=== PATIENT | female | born 1940 | race Caucasian/White ===

== ENCOUNTER → 2016-08-19 | Outpatient (CLI) | payer MEDICARE, OTHER | END | disposition home or self-care (01) | LOC: GMAB 02:19 | PROVIDERS: ATTEND Family Medicine | DX: R14.0 Abdominal distension (gaseous) (principal); M79.7 Fibromyalgia ==

== ENCOUNTER → 2016-11-09 | Outpatient (CLI) | payer MEDICARE, OTHER | LOC: GMAB 17:20 | PROVIDERS: ATTEND Family Medicine | DX: D61.818 Other pancytopenia (principal); D72.819 Decreased white blood cell count, unspecified ==

== ENCOUNTER → 2017-02-14 | Outpatient (CLI) | payer MEDICARE, OTHER | END | disposition home or self-care (01) | LOC: MAMMO 11:19 | PROVIDERS: ATTEND Family Medicine | DX: Z12.31 Encounter for screening mammogram for malignant neoplasm of breast (principal) ==

== ENCOUNTER → 2017-05-10 | Outpatient (CLI) | payer MEDICARE, OTHER | END | disposition home or self-care (01) | LOC: GMAB 11:59 | PROVIDERS: ATTEND Family Medicine | DX: D72.819 Decreased white blood cell count, unspecified (principal); D64.9 Anemia, unspecified; E53.8 Deficiency of other specified B group vitamins ==

== ENCOUNTER → 2017-06-06 | Outpatient (CLI) | payer MEDICARE, OTHER | END | disposition home or self-care (01) | LOC: GMAB 17:32 | PROVIDERS: ATTEND Family Medicine | DX: N39.498 Other specified urinary incontinence (principal) ==

== ENCOUNTER → 2017-06-13 | Outpatient (CLI) | payer MEDICARE, OTHER | END | disposition home or self-care (01) | LOC: GMAB 10:45 | PROVIDERS: ATTEND Family Medicine | DX: R94.5 Abnormal results of liver function studies (principal); I10 Essential (primary) hypertension ==

== ENCOUNTER → 2017-09-01 | Outpatient (CLI) | payer OTHER | LOC: GMAB 14:16 | PROVIDERS: ATTEND Family Medicine | DX: E53.8 Deficiency of other specified B group vitamins (principal); D64.9 Anemia, unspecified; D72.819 Decreased white blood cell count, unspecified ==

== ENCOUNTER 2018-01-19 06:39 | Emergency (ER) | payer OTHER ==
[2018-01-19 06:55] VITALS: TEMP 98.2
--- NOTE | 2018-01-19 07:14 | ED.PDOC ---
History of Present Illness - General Chief Complaint: Problem Stated Complaint: unable to completely empty when she urinates,sims Time Seen by Provider: 01/19/18 07:11 Source: patient Exam Limitations: no limitations - History of Present Illness Initial Comments: unable to completely empty her bladder, also voices that she sims and dribbles when she urinates, onset last night around midnight. Timing/Duration: other - last night Quality: moderate Onset Location: suprapubic Radiation: none Activites at Onset: none Improving Factors: nothing Allergies/Adverse Reactions: Allergies NO KNOWN ALLERGY Allergy (Verified 01/19/18 06:55) Home Medications: Ambulatory Orders Aspirin [Aspirin Childrens] 81 mg PO DAILY 06/29/15 Cholecalciferol [Vitamin D3] 1,000 unit PO DAILY 06/29/15 Cyclobenzaprine HCl [Flexeril] 10 mg PO PRN PRN 06/29/15 Duloxetine HCl 60 mg PO DAILY 06/29/15 HYDROcodone 7.5MG/APAP 325MG [[place] 7.5/325] 1 ea PO PRN 06/29/15 Hydroxychloroquine [Plaquenil] 200 mg PO DAILY 06/29/15 Meloxicam 15 mg PO DAILY 06/29/15 Metoprolol Tartrate 25 mg PO DAILY 06/29/15 Pantoprazole Sodium 40 mg PO DAILY 06/29/15 Simvastatin 40 mg PO BEDTIME 06/29/15 Alendronate Sodium [Fosamax] 70 mg PO WKLY 01/19/18 Cyanocobalamin [Vitamin B-12] 500 mcg PO DAILY 01/19/18 Phenazopyridine HCl [Pyridium] 200 mg PO Q8HRS #6 tab 01/19/18 Tofacitinib Citrate [Xeljanz] 5 mg PO BID 01/19/18 Triamterene & Hydrochlorothiaz [Triamterene/Hydrochloroth 37.5-25 mg] 1 cap PO DAILY 01/19/18 levoFLOXacin [Levaquin] 500 mg PO DAILY #10 tab 01/19/18 Review of Systems - Review of Systems Constitutional: States: no symptoms reported EENTM: States: no symptoms reported Respiratory: States: no symptoms reported Cardiology: States: no symptoms reported Gastrointestinal/Abdominal: States: no symptoms reported Genitourinary: States: dysuria, pain Musculoskeletal: States: no symptoms reported Skin: States: no symptoms reported Neurological: States: no symptoms reported Endocrine: States: no symptoms reported Hematologic/Lymphatic: States: no symptoms reported Past Medical History (General) - Patient Medical History Hx Seizures: No Hx Stroke: No Hx Dementia: No Hx Asthma: No Hx of COPD: No Hx Cardiac Disorders: No Hx Congestive Heart Failure: No Hx Pacemaker: No Hx Hypertension: Yes Hx Thyroid Disease: No Hx Diabetes: No Hx Gastroesophageal Reflux: Yes Hx Renal Disease: No Hx of HIV: No Hx MRSA: No Surgical History: cholecystectomy - Vaccination History Hx Tetanus, Diphtheria Vaccination: No Hx Influenza Vaccination: Yes - 2014 Hx Pneumococcal Vaccination: Yes - 2015 - Social History Hx Tobacco Use: No Hx Alcohol Use: No Hx Substance Use: No Hx Substance Use Treatment: No Hx Depression: Yes Family Medical History - Family History Mother Living Status: Hx Family Hypertension: Yes Father Living Status: Hx Cardiac Disease: Yes Physical Exam - Physical Exam General Appearance: Alert, Well Developed, Well Groomed, Well Nourished Eyes, Ears, Nose, Throat Exam: PERRL/EOMI, normal ENT inspection Neck: non-tender, full range of motion, supple Cardiovascular/Respiratory: regular rate, rhythm, normal peripheral pulses, no JVD Gastrointestinal/Abdominal: normal bowel sounds, non tender, soft Rectal Exam: deferred Back Exam: normal inspection, no CVA tenderness Extremity: normal range of motion 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 WAITING FOR UA RESULT. - Results/Orders Results/Orders: UA: TNCT WBC'S AND RBC'S. WILL GIVE IM ROCEPHIN AND DC ON ANTIBIOTICS Departure - Departure Clinical Impression: Urinary tract infection Qualifiers: Urinary tract infection type: acute cystitis Hematuria presence: with hematuria Qualified Code(s): N30.01 - Acute cystitis with hematuria Time of Disposition: 08:24 Condition: Good Departure Forms: ED Discharge - Pt. Copy, Patient Portal Self Enrollment Instructions: DI for Urinary Tract Infection (UTI) Referrals: ISIS SCHUSTER MD [Primary Care Provider] - 1-2 Weeks Prescriptions: Phenazopyridine HCl [Pyridium] 200 mg PO Q8HRS #6 tab levoFLOXacin [Levaquin] 500 mg PO DAILY #10 tab Home Medications: Ambulatory Orders Aspirin [Aspirin Childrens] 81 mg PO DAILY 06/29/15 Cholecalciferol [Vitamin D3] 1,000 unit PO DAILY 06/29/15 Cyclobenzaprine HCl [Flexeril] 10 mg PO PRN PRN 06/29/15 Duloxetine HCl 60 mg PO DAILY 06/29/15 HYDROcodone 7.5MG/APAP 325MG [[place] 7.5/325] 1 ea PO PRN 06/29/15 Hydroxychloroquine [Plaquenil] 200 mg PO DAILY 06/29/15 Meloxicam 15 mg PO DAILY 06/29/15 Metoprolol Tartrate 25 mg PO DAILY 06/29/15 Pantoprazole Sodium 40 mg PO DAILY 06/29/15 Simvastatin 40 mg PO BEDTIME 06/29/15 Alendronate Sodium [Fosamax] 70 mg PO WKLY 01/19/18 Cyanocobalamin [Vitamin B-12] 500 mcg PO DAILY 01/19/18 Phenazopyridine HCl [Pyridium] 200 mg PO Q8HRS #6 tab 01/19/18 Tofacitinib Citrate [Xeljanz] 5 mg PO BID 01/19/18 Triamterene & Hydrochlorothiaz [Triamterene/Hydrochloroth 37.5-25 mg] 1 cap PO DAILY 01/19/18 levoFLOXacin [Levaquin] 500 mg PO DAILY #10 tab 01/19/18
[2018-01-19] MEDS ORDERED: PHENAZOPYRIDINE HCL 200 MG TAB PO ONE (07:48)
[2018-01-19] MEDS ORDERED: cefTRIAXone SODIUM 1 GM VIAL IM ONE (08:21)
[2018-01-19] MEDS ORDERED: cefTRIAXone SODIUM 1 GM VIAL ONE (08:32)
[2018-01-19] MEDS ORDERED: LIDOCAINE 1% 2 ML VIAL INJ ONE (08:33)
[2018-01-19 08:47] VITALS: BP 143/79; O2SAT 95
== END 2018-01-19 08:47 | disposition home or self-care (01) ==
LOC: ER 06:39
DX: N30.01 Acute cystitis with hematuria (principal); I10 Essential (primary) hypertension; K21.9 Gastro-esophageal reflux disease without esophagitis; Z79.82 Long term (current) use of aspirin; Z79.899 Other long term (current) drug therapy
CPT/HCPCS: 81001; 87086; J0696

== ENCOUNTER → 2018-01-31 | Outpatient (CLI) | payer OTHER | LOC: GMAE 14:20 | PROVIDERS: ATTEND Family Medicine | DX: E53.8 Deficiency of other specified B group vitamins (principal); D64.9 Anemia, unspecified; D72.819 Decreased white blood cell count, unspecified ==

== ENCOUNTER → 2018-07-31 | Outpatient (CLI) | payer OTHER ==
--- NOTE | 2018-07-31 10:28 | RAD ---
One radiograph pelvis. 2 radiographs left hip. 2 radiographs right hip. Indication: M25.552 Comparison: None. Impression: Pelvic ring intact. No displaced fracture of the pelvis or hips identified in this osteopenic patient. Evaluation for fracture is limited given the degree of osteopenia. If high clinical concern for acute fracture, correlation with MRI recommended given its greater sensitivity in the osteopenic patient. If the patient cannot tolerate MRI imaging or more urgent imaging is required, CT could be performed, however it is less sensitive in the osteopenic patient when compared to MRI. Mild bilateral hip osteoarthritis with joint space narrowing and tiny osteophytes. Mild ossification of the left hip labrum and right hip labrum noted. Enthesophyte formation right gluteal tendon insertions. Lower lumbar disc disease. Electronically signed by: Adama Busby MD 07/31/2018 10:26 AM [facility]
--- NOTE | 2018-07-31 10:28 | RAD ---
One radiograph pelvis. 2 radiographs left hip. 2 radiographs right hip. Indication: M25.552 Comparison: None. Impression: Pelvic ring intact. No displaced fracture of the pelvis or hips identified in this osteopenic patient. Evaluation for fracture is limited given the degree of osteopenia. If high clinical concern for acute fracture, correlation with MRI recommended given its greater sensitivity in the osteopenic patient. If the patient cannot tolerate MRI imaging or more urgent imaging is required, CT could be performed, however it is less sensitive in the osteopenic patient when compared to MRI. Mild bilateral hip osteoarthritis with joint space narrowing and tiny osteophytes. Mild ossification of the left hip labrum and right hip labrum noted. Enthesophyte formation right gluteal tendon insertions. Lower lumbar disc disease. Electronically signed by: Adama Busby MD 07/31/2018 10:26 AM [facility]
== END ==
LOC: RAD 09:02
PROVIDERS: ATTEND Orthopaedic Surgery
DX: M25.551 Pain in right hip (principal); M25.552 Pain in left hip; M16.0 Bilateral primary osteoarthritis of hip; M51.86 Other intervertebral disc disorders, lumbar region

== ENCOUNTER → 2018-08-09 | Outpatient (CLI) | payer OTHER ==
--- NOTE | 2018-08-10 14:15 | MRI ---
Study: MRI of the Right Hip. MRI of the Left Hip. Indication: STRAIN OF MUSCLE Technique: Multiplanar, multi sequence MRI of the right hip and MRI of the left hip were obtained without intravenous contrast. Comparison: Radiographs July 31, 2018. Findings: Pronounced lower lumbar disc disease. Mild pubic symphysis osteoarthritis. No acute fracture or osteonecrosis. Tendinosis bilateral hamstring tendon origins. Tendinosis bilateral gluteus minimus and medius tendon insertions. No high-grade pelvic tendon tear. Moderate risk edema in the bilateral adductor musculature adjacent to the parasymphyseal pubic bones indicating muscle strains. Moderate bilateral hip osteoarthritis with areas of grade 3 and mild grade 4 chondral loss affecting the bilateral hip joints. Subchondral cystic change noted of the superomedial aspect of the right acetabulum posteriorly. Small to moderate joint line osteophytes noted. Degenerative tearing of the right hip labrum and left hip labrum suspected. Impression: Moderate bilateral hip osteoarthritis with associated bilateral anterior superior labral tearing. No acute fracture or osteonecrosis. Subtle strains of the medial margins of the bilateral adductor musculature. No muscle tear. Additional findings as above. Electronically signed by: Adama Busby MD 08/10/2018 2:13 PM [facility]
== END ==
LOC: MRI 12:54
PROVIDERS: ATTEND Orthopaedic Surgery
DX: S76.091A Other specified injury of muscle, fascia and tendon of right hip, initial encounter (principal); S76.092A Other specified injury of muscle, fascia and tendon of left hip, initial encounter; M16.0 Bilateral primary osteoarthritis of hip

== ENCOUNTER → 2018-08-10 | Outpatient (CLI) | payer OTHER | LOC: GMAE 11:21 | PROVIDERS: ATTEND Family Medicine | DX: M06.9 Rheumatoid arthritis, unspecified (principal); I10 Essential (primary) hypertension ==

== ENCOUNTER 2018-10-15 18:57 | Emergency (ER) | payer OTHER ==
--- NOTE | 2018-10-15 19:21 | ED.PDOC ---
History of Present Illness - General Chief Complaint: Abdominal Pain Stated Complaint: upper abd/back pain Time Seen by Provider: 10/15/18 19:11 Information Source: patient Exam Limitations: no limitations - History of Present Illness Initial Comments: Manuela Yu 78 y/o female came to ER with intermittent dull ache between her shoulder blades radiating to upper abdominal area substernal since Tuesday felt nauseated today and since symptoms not any better decided to come to ER.Denies any heart problems ;has hypertension on medications.Had cardiac stress testing by Dr. Jones -pharmacovigilance scientist 3-4 years ago no abnormalities noted and since then no further follow up done by her. Abdominal Pain Onset Location: other - 3 days ago Pain Radiation: other - substernal Quality: dull Timing/Duration: days - 3 days Improving Factors: nothing Worsening Factors: nothing Associated Symptoms: nausea/vomiting Review of Systems - Review of Systems Constitutional: States: no symptoms reported EENTM: States: no symptoms reported Respiratory: States: no symptoms reported Cardiology: States: see HPI Gastrointestinal/Abdominal: States: no symptoms reported Genitourinary: States: no symptoms reported Musculoskeletal: States: no symptoms reported Skin: States: no symptoms reported Neurological: States: no symptoms reported All other Systems: Reviewed and Negative, No Change from Baseline Past Medical History (General) - Patient Medical History Hx Seizures: No Hx Stroke: No Hx Dementia: No Hx Asthma: No Hx of COPD: No Hx Cardiac Disorders: No Hx Congestive Heart Failure: No Hx Pacemaker: No Hx Hypertension: Yes Hx Thyroid Disease: No Hx Diabetes: No Hx Gastroesophageal Reflux: Yes Hx Renal Disease: No Hx of HIV: No Hx MRSA: No Surgical History: appendectomy, cholecystectomy, tonsillectomy, other - both knees,hysterectomy,bladder tuck,foot - Vaccination History Hx Tetanus, Diphtheria Vaccination: No Hx Influenza Vaccination: Yes Hx Pneumococcal Vaccination: Yes - 2015 - Social History Hx Tobacco Use: No Hx Alcohol Use: No Hx Substance Use: No Hx Substance Use Treatment: No Hx Depression: Yes - Female History Patient is a Female of Child Bearing Age (10 -59 yrs old): No - Triage Comment ED Triage Comment: Pain around upper abdomen, back since tuesday. No vomiting but has nausea. Denies diarrhea Family Medical History - Family History Mother Living Status: Hx Family Hypertension: Yes - mom Hx Cardiac Disease: Yes - dad Hx Family Cancer: Yes - dad-prostate Father Living Status: Hx Cardiac Disease: Yes Physical Exam - Physical Exam General Appearance: Alert, Comfortable, No apparent distress Eyes, Ears, Nose, Throat Exam: normal ENT inspection, pharynx normal Neck: non-tender, supple, normal inspection Respiratory: lungs clear, normal breath sounds, no respiratory distress Cardiovascular/Chest: normal peripheral pulses, regular rate, rhythm Peripheral Pulses: No deficit Gastrointestinal/Abdominal: non tender, soft, no organomegaly Back Exam: no CVA tenderness, no vertebral tenderness Extremity: no calf tenderness, pedal edema - + 1, other - varicosities Neurologic: alert, oriented x 3 Skin Exam: normal color, warm/dry Progress - Progress Progress: 10/15/18 20:23 Vital Signs - 8 hr 10/15/18 19:12 Temperature 99.7 F H Pulse Rate [ 62 Right] Respiratory 18 Rate Blood Pressure 169/89 [Left Arm] O2 Sat by Pulse 98 Oximetry - Results/Orders Results/Orders: 10/15/18 19:20 IV Care:Saline Lock per Protoc QSHIFT 10/15/18 19:22 EKG Assessment ONCE 10/15/18 19:30 EKG STAT 10/15/18 20:30 Heparin Premix [Heparin/D5w 25,000U/500ML] 25,000 units Premix Bag 1 bag IVS PRN 10/15/18 20:56 Urine Culture Stat 10/15/18 21:58 Sodium Chloride 0.9% 1000ML [Ns 1000 ml] 1,000 ml IVS .QD Laboratory Results - last 24 hr 10/15/18 10/15/18 10/15/18 19:20 19:20 19:20 WBC 4.2 L RBC 3.30 L Hgb 10.5 L Hct 31.6 L MCV 95.6 MCH 31.8 H MCHC 33.3 RDW 13.9 Plt Count 130 MPV 8.4 Absolute Neuts (auto) 3.00 Absolute Lymphs (auto) 0.70 L Absolute Monos (auto) 0.40 Absolute Eos (auto) 0.10 Absolute Basos (auto) 0.00 Neutrophils % 70.5 Lymphocytes % 16.1 L Monocytes % 10.4 H Eosinophils % 2.4 Basophils % 0.6 ESR 30 PT 9.5 INR 0.95 PTT (SP) 22.1 D-Dimer, Quantitative 2.08 H* Sodium 138 Potassium 3.6 Chloride 105 Carbon Dioxide 21 Anion Gap 15.6 BUN 23 H Creatinine 1.40 H BUN/Creatinine Ratio 16.4 Random Glucose 109 H Serum Osmolality 279.9 Calcium 8.7 Magnesium 1.9 Total Bilirubin 0.7 Direct Bilirubin 0.1 Indirect Bilirubin 0.6 AST 39 ALT 17 Alkaline Phosphatase 61 Creatine Kinase 179 H CK-MB (CK-2) 8.0 H* CK-MB (CK-2) % 4.47 H Troponin I 0.13 H* Serum Total Protein 6.2 L Albumin 3.6 Urine Color Urine Appearance Urine pH Ur Specific [place] Urine Protein Urine Glucose (UA) Urine Ketones Urine Blood Urine Nitrite Urine Bilirubin Urine Urobilinogen Ur Leukocyte Esterase Urine RBC Urine WBC Ur Epithelial Cells Urine Bacteria 10/15/18 20:56 WBC RBC Hgb Hct MCV MCH MCHC RDW Plt Count MPV Absolute Neuts (auto) Absolute Lymphs (auto) Absolute Monos (auto) Absolute Eos (auto) Absolute Basos (auto) Neutrophils % Lymphocytes % Monocytes % Eosinophils % Basophils % ESR PT INR PTT (SP) D-Dimer, Quantitative Sodium Potassium Chloride Carbon Dioxide Anion Gap BUN Creatinine BUN/Creatinine Ratio Random Glucose Serum Osmolality Calcium Magnesium Total Bilirubin Direct Bilirubin Indirect Bilirubin AST ALT Alkaline Phosphatase Creatine Kinase CK-MB (CK-2) CK-MB (CK-2) % Troponin I Serum Total Protein Albumin Urine Color Yellow Urine Appearance Clear Urine pH 6.0 Ur Specific [place] 1.020 Urine Protein Negative Urine Glucose (UA) Negative Urine Ketones Trace Urine Blood Negative Urine Nitrite Negative Urine Bilirubin Negative Urine Urobilinogen 0.2 Ur Leukocyte Esterase Small H Urine RBC 0-1 Urine WBC 3-5 H Ur Epithelial Cells 3-5 Urine Bacteria 1+ - EKG/XRAY/CT EKG: Sinus, LVH, nonspecific ST T wave Chg Comments: HR-56 XRAY: chest - no active pulmonary disease. Departure - Departure Clinical Impression: NSTEMI (non-ST elevated myocardial infarction), Substernal chest pain, Elevated d-dimer, Renal insufficiency Time of Disposition: 23:27 Disposition: Transfer to Hospital Condition: Fair Departure Forms: ED Discharge - Pt. Copy, Patient Portal Self Enrollment Instructions: DI for Abdominal Pain-Adult Referrals: ISIS SCHUSTER MD [Primary Care Provider] - 1-2 Weeks Home Medications: Ambulatory Orders Aspirin [Aspirin Childrens] 81 mg PO DAILY 06/29/15 Cholecalciferol [Vitamin D3] 1,000 unit PO DAILY 06/29/15 Cyclobenzaprine HCl [Flexeril] 10 mg PO PRN PRN 06/29/15 Duloxetine HCl 60 mg PO DAILY 06/29/15 HYDROcodone 7.5MG/APAP 325MG [[place] 7.5/325] 1 ea PO PRN 06/29/15 Hydroxychloroquine [Plaquenil] 200 mg PO DAILY 06/29/15 Meloxicam 15 mg PO DAILY 06/29/15 Metoprolol Tartrate 25 mg PO DAILY 06/29/15 Pantoprazole Sodium 40 mg PO DAILY 06/29/15 Simvastatin 40 mg PO BEDTIME 06/29/15 Cyanocobalamin [Vitamin B-12] 500 mcg PO DAILY 01/19/18 Triamterene & Hydrochlorothiaz [Triamterene/Hydrochloroth 37.5-25 mg] 1 cap PO DAILY 01/19/18 Transfer to Outside Facility - Transfer Information Accepting Provider:: Dr. 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
--- NOTE | 2018-10-15 19:43 | RAD ---
EXAM:Chest,2 Views CLINICAL INDICATION: Pain COMPARISON: 07/15/2010 FINDINGS:Two views of the chest were obtained. The heart size is normal. The pulmonary vascularity is unremarkable. The lungs are clear. There is no consolidation, infiltrate, pleural effusion, or pneumothorax. IMPRESSION: No evidence of active pulmonary disease. Electronically signed by: Del Joel MD 10/15/2018 7:40 PM CDT
[2018-10-15] MEDS ORDERED: ASPIRIN TABLET 325 MG TAB ONE (19:59)
[2018-10-15] MEDS ORDERED: ASPIRIN TABLET 325 MG TAB PO ONE (20:08)
[2018-10-15] MEDS ORDERED: HEPARIN PREMIX 25,000 UNITS in PREMIX BAG 1 BAG IVS SCH (20:30)
[2018-10-15] MEDS ORDERED: HEPARIN PREMIX 500 ML ONE (20:55)
[2018-10-15] MEDS ORDERED: NITROGLYCERIN 0.4 MG 25 EA TAB SL ONE (21:57)
[2018-10-15] MEDS ORDERED: SODIUM CHLORIDE 0.9% 1000ML 1,000 ML IVS PRN (21:58)
[2018-10-15] MEDS ORDERED: LABETALOL INJ 5 MG/ML VIAL IV ONE (21:59)
[2018-10-16 00:01] VITALS: BP 154/70; TEMP 99.2; O2SAT 95
== END 2018-10-15 23:50 | disposition short-term general hospital (02) ==
LOC: ER 18:57
DX: I21.4 Non-ST elevation (NSTEMI) myocardial infarction (principal); R79.89 Other specified abnormal findings of blood chemistry; N28.9 Disorder of kidney and ureter, unspecified; F32.9 Major depressive disorder, single episode, unspecified; K21.9 Gastro-esophageal reflux disease without esophagitis; I10 Essential (primary) hypertension; Z90.49 Acquired absence of other specified parts of digestive tract
CPT/HCPCS: 36415; 71046; 80048; 80076; 81001; 82550; 82553; 84484; 85025; 85379; 85610; 85651; 85730; 87086; 93005; J1644; J7030

== ENCOUNTER → 2018-11-16 | Outpatient (CLI) | payer OTHER ==
--- NOTE | 2018-11-16 16:26 | MRI ---
EXAM DESCRIPTION: Cervical Spine CLINICAL HISTORY: 78 years Female, CERVICAL DISC DISORDER COMPARISON: None available. TECHNIQUE: Multiplanar, multiecho imaging of the cervical spine was performed without gadolinium administration. FINDINGS: Reversal of the normal lordotic curvature of the cervical spine is noted. The vertebral body heights are well-maintained with no acute compression deformity. Multilevel intervertebral disc space narrowing is noted. The visualized spinal cord demonstrates no signal abnormality. The visualized prevertebral and paravertebral soft tissues appear grossly unremarkable. C2-C3: No central canal stenosis or neural foraminal narrowing. C3-C4: Disc desiccation and loss of disc height. Posterior disc bulge and uncovertebral joint arthropathy with resultant mild to moderate central canal stenosis and mild bilateral neural foraminal narrowing. C4-C5: Minimal retrolisthesis of C4 over C5 is noted. Disc desiccation and loss of disc height. Posterior disc osteophyte complex with resultant moderate to severe central canal stenosis, moderate right and moderate severe left neural foraminal narrowing. C5-C6: Minimal retrolisthesis of C5 over C6 is noted. Disc desiccation and loss of disc height. Posterior disc osteophyte complex with moderate to severe central canal stenosis, moderate to severe right and moderate left neural foraminal narrowing. C6-C7: Disc desiccation and loss of disc height. Posterior disc osteophyte complex and uncovertebral joint arthropathy with resultant mild to moderate central canal stenosis and moderate to severe left neural foraminal narrowing. C7-T1: No evidence of disc herniation. No significant canal stenosis or neural foraminal narrowing. IMPRESSION: Multilevel degenerative disc disease and uncovertebral joint arthropathy throughout the cervical spine with changes worse from C4-C5 to C6-C7 levels as described above. Electronically signed by: Heron Burch MD 11/16/2018 4:24 PM CDT
== END ==
LOC: MRI 10:59
PROVIDERS: ATTEND Psychiatry & Neurology Neurology
DX: M50.123 Cervical disc disorder at C6-C7 level with radiculopathy (principal); M50.121 Cervical disc disorder at C4-C5 level with radiculopathy

== ENCOUNTER → 2019-02-27 | Outpatient (CLI) | payer OTHER | LOC: LAB.O 09:11 | PROVIDERS: ATTEND Internal Medicine Gastroenterology | DX: K25.9 Gastric ulcer, unspecified as acute or chronic, without hemorrhage or perforation (principal) ==

== ENCOUNTER → 2019-03-14 | Outpatient (CLI) | payer OTHER | LOC: LAB.O 10:04 | PROVIDERS: ATTEND Internal Medicine Gastroenterology | DX: K25.9 Gastric ulcer, unspecified as acute or chronic, without hemorrhage or perforation (principal); K63.89 Other specified diseases of intestine ==

== ENCOUNTER → 2019-03-15 | Outpatient (CLI) | payer OTHER ==
--- NOTE | 2019-03-16 14:55 | RAD ---
EXAM DESCRIPTION: UGI: Rad-Fluoroscopy. CLINICAL HISTORY: OTHER SPECIFIC DISEASE OF INTESTINE. Patient states previous gastric ulcer. Check on healing. COMPARISON: None. TECHNIQUE: The patient swallowed barium pill with water. The patient swallowed gas-producing granules, water, and heavy density barium under fluoroscopic visualization. The images were obtained with the patient standing and horizontal. Patient drank medium density barium through a straw in the semi-prone position. 32 fluoroscopic cine loop images. 12 static fluoroscopic images. Total fluoroscopy time was 2.5 minutes.. DAP: 6.39 Gy-cm2... 27.3 mGy. FINDINGS: The patient swallowed barium contrast without difficulty. No large esophageal mucosal lesions. Primary peristaltic wave into the distal esophagus with secondary contractions. In the horizontal position, a small sliding hiatal hernia was observed as well as gastroesophageal reflux above the level of the manan. The stomach was well distended with gas and contrast material. A deformity is visualized in the pylorus just proximal to the sphincter best visualized on the anterior and superior surface. This deformity is relatively consistent, containing contrast in the prone position and gas in the supine position. No mass effect on the stomach. The duodenal bulb and the remainder of the duodenum is unremarkable. No intrinsic lesions or mass effect. IMPRESSION: 1. Mildly dysfunctional primary peristaltic wave in the distal esophagus. Hiatal hernia and moderate gastroesophageal reflux. 2. Deformity noted from gastric ulcer in the pylorus abutting the pyloric sphincter. No gastric obstruction. No contrast extravasation. 3. Duodenal bulb and the remainder of the duodenum are unremarkable. Electronically signed by: Eliud Hawkins MD 03/16/2019 2:53 PM CDT
== END ==
LOC: RAD 08:02
PROVIDERS: ATTEND Internal Medicine Gastroenterology
DX: K63.89 Other specified diseases of intestine (principal); K25.9 Gastric ulcer, unspecified as acute or chronic, without hemorrhage or perforation; K44.9 Diaphragmatic hernia without obstruction or gangrene; K21.9 Gastro-esophageal reflux disease without esophagitis

== ENCOUNTER → 2019-05-16 | Outpatient (CLI) | payer OTHER ==
--- NOTE | 2019-05-18 15:49 | MAM ---
EXAM DESCRIPTION: 3D Screening BILATERAL : Digital Mammography. CLINICAL HISTORY: 79 years Female ANNUAL SCREENING . No complaints. Female sibling with ovarian cancer age 70. No personal or family history of breast cancer. Menarche age 12. Childbirth age 17. Postmenopausal. HRT 5 or more years ago.. Lifetime risk of developing breast cancer (Tyrer-Cuzick model)(%): 1.5. COMPARISON: 2-D digital screening bilateral mammography 14 February 2017.. TECHNIQUE: Bilateral CC and MLO projection full-field images, digital tomosynthesis mammographic technique. Bilateral digital 2-D full-field MLO images. CAD not available for tomosynthesis or 2-D images. FINDINGS: The breast parenchymal density pattern is: Scattered areas of fibroglandular density. No skin thickening or nipple retraction. Bilateral solitary microcalcifications. Bilateral vascular calcifications. Coarse calcifications in a tight group in the left breast. No new focal, stellate mass or density, focal asymmetry , and no suspicious microcalcifications bilaterally. Stable mammograms compared to prior study. Taking into account, differences in mammographic technique. IMPRESSION: Benign exam. BIRAD CATEGORY: 2 BENIGN FINDINGS. RECOMMENDATIONS: FOLLOW UP: Routine digital bilateral mammographic screening, one year interval from May 2019. Written communication explaining the IMPRESSION and follow-up, will be mailed to the patient and referring health care provider. According to the [employer], yearly mammograms are recommended starting at age 40 and continuing as long as a woman is in good health. Any breast change noted on a breast self-exam should be reported promptly to the patient's healthcare provider. Breast MRI is recommended for women with an approximately 20-25% or greater lifetime risk of breast cancer, including women with a strong family history of breast or ovarian cancer and women who have been treated for Hodgkin's disease. A negative mammographic report should not delay tissue diagnosis in patients with significant clinical history or physical findings. Extremely dense breast tissue limits the sensitivity of digital mammography. Electronically signed by: Eliud Hawkins MD 05/18/2019 3:48 PM RAMP FLIGHT ATTENDANT
== END ==
LOC: MAMMO 10:30
PROVIDERS: ATTEND Family Medicine
DX: Z12.31 Encounter for screening mammogram for malignant neoplasm of breast (principal)

== ENCOUNTER → 2019-12-31 | Outpatient (CLI) | payer OTHER | LOC: LAB.O 14:18 | PROVIDERS: ATTEND Nurse Practitioner | DX: M06.9 Rheumatoid arthritis, unspecified (principal); M81.0 Age-related osteoporosis without current pathological fracture ==

== ENCOUNTER → 2020-01-21 | Outpatient (CLI) | payer OTHER | LOC: GMAE 10:30 | PROVIDERS: ATTEND Family Medicine | DX: I10 Essential (primary) hypertension (principal); E78.2 Mixed hyperlipidemia ==

== ENCOUNTER → 2020-08-04 | Outpatient (CLI) | payer MEDICARE | LOC: GMAE 14:28 | PROVIDERS: ATTEND Family Medicine | DX: M06.9 Rheumatoid arthritis, unspecified (principal) ==